=== PATIENT | female | born 1995 | race American Indian/Alaskan Native ===

== ENCOUNTER 2019-08-28 01:39 | Emergency (ER) | payer SELFPAY ==
--- NOTE | 2019-08-28 02:47 | Emergency Department Report ---
HPI - General Chief Complaint: Upper Respiratory Infection Time Seen by Provider: 08/28/19 01:55 - HPI HPI: 24-year-old -[place]in[place] female presents to the emergency department with the complaint of possible exposure to someone who was positive for Covid-19. The patient is currently here with her roommate, who his daughter she has spent time with and apparently tested positive for this virus sometime today. The patient herself says that she has had a few days of a mixed dry and productive cough. She denies any fever, shortness of breath, chest pain, lower extremity swelling. She is an occasional/social tobacco smoker. No recent travel. She has not taken anything for symptoms prior to presentation today. ED Past Medical Hx - Past Medical History Previous Medical History?: No - Surgical History Past Surgical History?: Yes Additional Surgical History: D&C - Social History Smoking Status: Current Every Day Smoker Substance Use Type: Alcohol, Marijuana ED Review of Systems ROS: Stated complaint: EXPOSURE/BONILLA Other details as noted in HPI Comment: All other systems reviewed and negative Constitutional: denies: chills, fever ENT: denies: ear pain, throat pain Respiratory: cough. denies: shortness of breath Cardiovascular: denies: palpitations, edema Gastrointestinal: denies: abdominal pain, vomiting Musculoskeletal: denies: back pain, myalgia Neurological: denies: headache, weakness Physical Exam - Physical Exam Vital Signs: Vital Signs 08/28/19 01:41 Temperature 98.2 F Physical Exam: GENERAL: The patient is well-developed well-nourished. HENT: Normocephalic. Atraumatic. Patient has moist mucous membranes. EYES: Extraocular motions are intact. NECK: Supple. Trachea is midline. CHEST/LUNGS: Clear to auscultation. No tachypnea or accessory muscle use. No cough heard during examination. There is no respiratory distress noted. HEART/CARDIOVASCULAR: Regular. There is no tachycardia. ABDOMEN: Abdomen is soft, nontender. Patient has normal bowel sounds. SKIN: Skin is warm and dry. NEURO: The patient is awake, alert, and oriented. The patient is cooperative. Normal speech. MUSCULOSKELETAL: There is no tenderness or deformity. There is no evidence of acute injury. ED Course Vital Signs 08/28/19 01:41 Temperature 98.2 F ED Medical Decision Making - Radiology Data Radiology results: image reviewed interpreted by me: Chest x-ray does not show any acute process. There are no pleural effusions, obvious pneumonia and there is no pneumothorax. - Medical Decision Making This patient presents to the emergency department with a complaint of an occasional cough and exposure to someone who was allegedly positive for the novel coronavirus 2019. On examination the patient does not have any rhonchi, wheezing, signs of respiratory or acute distress. A chest x-ray was done that does not show any pneumonia, pleural effusions, or any other acute process. Her vital signs been stable throughout her ED course including being afebrile and no hypoxia. The patient does not appear to require admission at this time. She has been instructed to go into a 14-day self quarantine/isolation given her exposure to someone with Covid-19. She is also been instructed to contact the [facility] regarding any further follow-up testing and/or monitoring. The patient will return to the emergency department immediately with any shortness of breath, intractable high fever, or with any acute distress. - Differential Diagnosis allergies, viral URI, Covid-19, Pneumonia Critical Care Time: No Critical care attestation.: If time is entered above; I have spent that time in minutes in the direct care of this critically ill patient, excluding procedure time. ED Disposition Clinical Impression: Exposure to 2019 novel coronavirus, Cough Disposition: DC- TO HOME OR SELFCARE Is pt being admited?: No Condition: Stable Instructions: Upper Respiratory Infection (ED) Additional Instructions: Due to your exposure and someone with Covid-19, you will need to go into a 14- day quarantine/self isolation. You can contact the [facility] regarding any outpatient follow-up or to inquire about testing. However, please return to the emergency department immediately with any significant shortness of breath, low oxygen saturation, or high intractable fever. Referrals: PRIMARY CARE, [Primary Care Provider] - 2-3 Days Forms: Work/School Release Form(ED) Time of Disposition: 03:55
[2019-08-28 03:44] VITALS: BP 116/70
--- NOTE | 2019-08-28 03:53 | XRay Report ---
CHEST 1 VIEW INDICATION / CLINICAL INFORMATION: cough. COMPARISON: None available. FINDINGS: SUPPORT DEVICES: None. HEART / MEDIASTINUM: No significant abnormality. LUNGS / PLEURA: No significant pulmonary or pleural abnormality. No pneumothorax. ADDITIONAL FINDINGS: No significant additional findings. IMPRESSION: No acute pulmonary or pleural abnormality Signer Name: Tim Shepherd MD FACR Signed: 08/28/2019 3:49 AM Workstation Name: [id number]
== END 2019-08-28 04:29 | disposition home or self-care (01) ==
LOC: ED 01:39
DX: R05 Cough (principal); F12.90 Cannabis use, unspecified, uncomplicated; F17.200 Nicotine dependence, unspecified, uncomplicated; Z20.828 Contact with and (suspected) exposure to other viral communicable diseases; Z98.890 Other specified postprocedural states
CPT/HCPCS: 71045